=== PATIENT | female | born 1995 | race Asian ===

== ENCOUNTER 2016-06-10 02:49 | Emergency (ER) | payer OTHER ==
[2016-06-10] MEDS ORDERED: LORAZEPAM 1 MG TABLET ONE (03:15)
[2016-06-10] MEDS ORDERED: IBUPROFEN 600 MG TABLET ONE (03:30)
[2016-06-10] MEDS ORDERED: AZITHROMYCIN 250 MG TABLET ONE (03:30)
[2016-06-10 03:59] LABS: ABSOLUTE NEUTROPHIL COUNT 11.8 K/mm3 (1.8-7.7); BASO % 0.3 % (0.2-1.0); EOS # 0.2 (0.0-0.5); EOS % 1.2 % (0.9-2.9); HEMATOCRIT 43.4 % (37.0-47.0); HEMOGLOBIN 14.3 gm/l (12.0-16.0); IMM NEUT # 0.1 K/mm3 (0-0.2); IMM NEUT% 0.4 % (0-1); LYMPH # 2.1 (1.0-4.8); LYMPH % 13.7 % (15-45); MEAN CELL VOLUME 88.6 fl (81.0-99.0); MEAN CORPUSCULAR HEMOGLOBIN 29.2 pg (27.0-31.0); MEAN CORPUSCULAR HGB CONC 32.9 g/dl (33.0-37.0); MEAN PLATELET VOLUME 11.7 fl (7.4-10.4); MONO # 0.9 (0.0-0.8); NEUT % 78.4 % (43-75); PLATELET COUNT 280 K/mm3 (130-400); RED CELL DISTRIBUTION WIDTH 11.9 % (11.5-14.5)
--- NOTE | 2016-06-10 08:13 | RAD ---
CHEST - 2 VIEWS COMPARISON: None. HISTORY: Right-sided chest pain and cough. FINDINGS: Views: Frontal and lateral chest Lungs: Airspace infiltrate in the right upper lobe near the minor fissure. Heart and vessels: Normal Trachea and bronchi: Normal Mediastinum and lionel: Normal Costophrenic sulci: Normal Chest wall and bones: Normal. Upper abdomen: Normal. IMPRESSION: Pneumonia of the right upper lobe, inferiorly at the minor fissure.
== END 2016-06-10 04:46 | disposition home or self-care (01) ==
LOC: ED 02:49
DX: J18.9 Pneumonia, unspecified organism (principal); J45.909 Unspecified asthma, uncomplicated
CPT/HCPCS: 83605; 85025; 71020; 99283 ×2; 93005; A9270 ×3